=== PATIENT | female | born 1990 | race Two or more races ===

== ENCOUNTER → 2016-11-10 | Outpatient (CLI) | payer MEDICAID ==
[2016-11-10 15:58] LABS: Basophils # (auto) 0 uL; Basophils % (auto) 0.4 % (0.0-2.0); CONDITION Y; Eosinophils # (auto) 0 uL; Eosinophils % (auto) 0.5 % (0.0-7.0); Hematocrit 42.5 % (36.0-46.0); Hemoglobin 14.5 g/dL (12.2-16.2); Lymphocytes # (auto) 3.2 uL; Lymphocytes % (auto) 36.5 % (10.0-50.0); Mean Corpuscular Hemoglobin 28.9 pg (28.0-32.0); Mean Corpuscular Hgb Conc. 34.1 g/dL (32.0-36.0); Mean Corpuscular Volume 84.6 fL (80.0-100.0); Mean Platelet Volume 11.4 fL (7.4-10.4); Monocytes # (auto) 0.4 uL; Monocytes % (auto) 4.4 % (0.0-12.0); Neutrophils # (auto) 5.2 uL; Neutrophils % (auto) 58.2 % (37.0-80.0); Platelet Count (auto) 255 10^3/uL (140-450); Red Cell Distribution Width 14.4 % (11.6-16.0); White Blood Cell 8.9 10^3/uL (4.4-10.8)
== END | disposition home or self-care (01) ==
LOC: LAB 14:54
PROVIDERS: ATTEND Obstetrics & Gynecology
DX: Z34.00 Encounter for supervision of normal first pregnancy, unspecified trimester (principal)
CPT/HCPCS: 36415; 80307; 84702; 85025; 86703; 86762; 86850; 86900; 86901; 87086; 87340